=== PATIENT | female | born 1985 | race Caucasian/White ===

== ENCOUNTER → 2016-12-10 | Outpatient (CLI) | payer OTHER | LOC: CIMAGING 15:14 | PROVIDERS: ATTEND Internal Medicine Endocrinology, Diabetes & Metabolism | DX: R22.2 Localized swelling, mass and lump, trunk (principal) | CPT/HCPCS: 76882-PO ==

== ENCOUNTER → 2017-08-07 | Outpatient (CLI) | payer OTHER | LOC: FIMAGING 16:35 | PROVIDERS: ATTEND Physician Assistant | DX: M25.562 Pain in left knee (principal); W19.XXXA Unspecified fall, initial encounter ==